=== PATIENT | male | born 1960 | race Caucasian/White ===

== ENCOUNTER 2022-11-06 11:00 | Emergency (ER) | payer OTHER, SELFPAY ==
--- NOTE | 2022-11-06 11:04 | ED.GENADULT ---
HPI - General Adult General Chief complaint: Dizziness Stated complaint: dizziness Time Seen by Provider: 11/06/22 11:25 Source: patient and RN notes reviewed Mode of arrival: ambulatory Limitations: no limitations History of Present Illness HPI narrative: 62-year-old male presents to the [facility] with increasing dizziness over the last 2 weeks. Had a dizzy episode yesterday where he states that he ?passed out for several minutes. Did not fall, did not hit head. On arrival heart rate 150. EKG done. Reports a history of hypertension. States that he called his doctor with HS was told to go an urgent care. MD complaint: dizzy Treatments prior to arrival: none Related Data Home Medications Medication Instructions Recorded Confirmed amlodipine 10 mg tablet 10 mg PO DAILY 11/06/22 11/06/22 hydrochlorothiazide 25 mg tablet 25 mg PO DAILY 11/06/22 11/06/22 olmesartan 40 mg tablet 40 mg PO DAILY 11/06/22 11/06/22 Allergies Allergy/AdvReac Type Severity Reaction Status Date / Time No Known Allergies Allergy Verified 11/06/22 11:46 Review of Systems Review of Systems: All systems reviewed & are unremarkable except as noted in HPI and below Constitutional: Constitutional: Reports no additional constitutional complaints Eyes: Eyes: Reports no additional eye complaints ENT: Reports system reviewed and no additional complaints, except as documented Cardiovascular: Cardiovascular: Reports no additional cardiovascular complaints, Denies chest pain and Denies dyspnea Respiratory: Respiratory: Reports no additional respiratory complaints, Denies chest congestion, Denies cough and Denies dyspnea Gastrointestinal: Gastrointestinal: Reports no additional gastrointestinal complaints, Denies abdominal pain, Denies nausea and Denies vomiting Musculoskeletal: Musculoskeletal: Reports no additional musculoskeletal complaints Integumentary/Breasts: Skin/Breast: Reports system reviewed and no additional complaints, except as docu Neurologic: Reports as per HPI, Reports dizziness and Reports syncope Psychiatric: Psychiatric: Reports no additional psychiatric complaints Allergic/Immunologic: Allergic/Immunologic: Reports no additional allergic/immunologic complaints PMFSH Past Medical History Medical History History of high blood pressure Surgical History Surgical History No history of previous surgery Social History Social History : Male Comments At the time of my signature, I reviewed and agree with the nursing past medical, surgical, social, and family history. There is no relevant family history pertinent to the patient complaint. Exam Const: General: cooperative, healthy appearing, comfortable, no acute distress, well developed, alert and well nourished Nutritional Appearance: well nourished and obese Orientation/consciousness: patient oriented x3 Limitations: no limitations HENMT: Head: normal to inspection Ears: hearing grossly normal bilaterally and external ears normal Face/Nose/Sinus: Normal external nose present, Normal nares present, Normal nasal mucous membranes and turbinates present, normal facial exam and face symmetric Face and sinus: normal facial exam and face symmetric Eyes: General: appearance normal, both eyes and all related structures Alignment and Position: alignment normal Periorbital: periorbital findings normal Pupils: Equal, round and reactive pupils present EOM: EOMs intact bilaterally Neck: Neck: normal visual inspection, full ROM, no lymphadenopathy and no meningeal signs Chest: Chest palpation & inspection: normal inspection of the chest Resp: Effort & Inspection: normal respiratory effort and able to speak in complete sentences Auscultation: clear to auscultation bilat
[2022-11-06 11:29] VITALS: BP 155/91; PULSE 155; RESP 18; TEMP 36.3; O2SAT 100
--- NOTE | 2022-11-06 14:13 | ECG_ITS ---
Measurements Intervals [place] Rate: 116 P: 27 [place]: 170 QRS: 8 QRSD: 99 T: 23 QT: 343 QTc: 477 Interpretive Statements SINUS TACHYCARDIA ATRIAL AND VENTRICULAR PREMATURE COMPLEXES INCOMPLETE RIGHT BUNDLE BRANCH BLOCK BORDERLINE T WAVE ABNORMALITY- INFERIOR LEADS ABNORMAL ECG NO PREVIOUS ECG AVAILABLE FOR COMPARISON Electronically Signed On 11-06-2022 14:24:15 CDT by Zach Ayala D.O.
== END 2022-11-06 11:35 | disposition short-term general hospital (02) ==
LOC: EXPTROY 11:09
PROVIDERS: Emergency Provider Nurse Practitioner
DX: R42 Dizziness and giddiness (principal); R94.31 Abnormal electrocardiogram [ECG] [EKG]; I10 Essential (primary) hypertension
CPT/HCPCS: 93005; 99203; G0463

== ENCOUNTER 2022-11-06 11:56 | Emergency (ER) | payer OTHER, SELFPAY ==
--- NOTE | ~2022-11-06 | CT_ITS ---
EXAMINATION: CTA chest PE protocol DATE: 11/06/2022 17:52 INDICATION: elevated ddimer, tachycardia TECHNIQUE: Computed tomography angiography (CTA) of the chest was performed with 100 mL Omnipaque-350 intravenous contrast timed to evaluate the pulmonary arteries. Coronal maximum intensity projection 3D-reconstructions were created by the technologist. The dose-length product (DLP) was 1045.65 mGy-cm . Automated exposure control and iterative reconstruction technique were employed. COMPARISON: None. FINDINGS: Lung parenchyma and airways: Motion artifact. 5 mm right lower lobe pulmonary nodule. Pleura: Unremarkable. Thoracic inlet, axillae and chest wall: Unremarkable. Thoracic aorta: Mild arch ectasia. Mediastinum: Normal. Heart and pericardium: Cardiomegaly. Coronary artery calcifications: Mild. Upper abdomen: No significant finding. Bones: No acute osseous finding. Pulmonary arteries: Study quality: Exam limited by significant beam hardening artifact and mild motio n artifact. No pulmonary emboli detected. IMPRESSION: Exam limitations are present, particularly in the segmental branches of the lungs. No acute central o r occlusive segmental pulmonary embolus detected. Sub-6 mm right lower lobe pulmonary nodule, requiring no routine follow-up unless the patient is at h igh risk, in which case consider an optional CT at 12 months. Reviewed, dictated and finalized at location K. IMPRESSION: Exam limitations are present, particularly in the segmental branches of the magdaleno gs. No acute central or occlusive segmental pulmonary embolus detected. Sub-6 mm right lower lobe pulmonary nodule, requiring no routine follow-up unle ss the patient is at high risk, in which case consider an optional CT at 12 mon ths.
--- NOTE | 2022-11-06 12:00 | ECG_ITS ---
Measurements Intervals [place] Rate: 90 P: 12 [place]: 149 QRS: 11 QRSD: 102 T: 32 QT: 367 QTc: 451 Interpretive Statements SINUS RHYTHM BASELINE ARTIFACT- I, III, AVR, AVL NORMAL ECG NO PREVIOUS ECG AVAILABLE FOR COMPARISON Electronically Signed On 11-06-2022 13:20:30 CDT by Zach Ayala D.O.
[2022-11-06 12:51] VITALS: BP 175/95; PULSE 88; RESP 18; TEMP 36.6; O2SAT 99
[2022-11-06 15:18] VITALS: PULSE 90
--- NOTE | 2022-11-06 16:07 | ED.GENADULT ---
HPI - General Adult General Chief complaint: Dizziness Stated complaint: dizzziness Time Seen by Provider: 11/06/22 15:21 History of Present Illness HPI narrative: 62-year-old male presented emergency department for evaluation of multiple episodes of near syncope. Patient reports he does drink multiple beers a day and has a poor diet. Patient denies any prior cardiac history. Patient states yesterday he was ambulating and had onset of lightheaded dizziness and did make it back home and he felt improved after resting in his chair. Patient did present to the [facility] for evaluation and was sent to the emergency department. Upon arrival to the ED patient has a blood pressure of 175/95 and is not tachycardic and is saturating well on room air. Patient denies any current dizziness or lightheadedness. Patient denies any current chest pain or shortness of breath. Related Data Home Medications Medication Instructions Recorded Confirmed amlodipine 10 mg tablet mg 11/06/22 hydrochlorothiazide 25 mg tablet mg 11/06/22 meloxicam 15 mg tablet mg 11/06/22 olmesartan 40 mg tablet mg 11/06/22 olmesartan 40 mg tablet mg 11/06/22 Allergies Allergy/AdvReac Type Severity Reaction Status Date / Time No Known Allergies Allergy Verified 11/06/22 15:21 Review of Systems Review of Systems: All systems reviewed & are unremarkable except as noted in HPI and below Exam Narrative: APPEARANCE: Well appearing, no pain, no distress, well-nourished. HEAD: normocephalic, atraumatic. EYES: PERRLA/EOMI, conjunctivae clear. NOSE: Normal no drainage NECK: Supple. No adenopathy, no masses. RESPIRATORY: Airway patent, respirations nonlabored. Clear to auscultation bilaterally, no rales, rhonchi, wheezing. CARDIOVASCULAR: Regular rate and rhythm without murmurs rubs or gallops. ABDOMINAL: Soft, nontender, nondistended, normal bowel sounds MUSCULOSKELETAL: Moves all extremities. Strength/ROM intact, No edema, No calf tenderness. NEURO: Alert. Cranial nerves II through XII intact. SKIN: Warm, dry. Normal Color Course Course Emergency Course: 62-year-old male presented the ED for evaluation of near syncope and hypertension. Patient declined an IV and labs. Ultimately patient did agree to have IV and labs. Patient was treated with a liter of IV fluids and hydralazine. Patient was afebrile with no leukocytosis and a stable hemoglobin. Patient's CMP was within normal limits. Patient's blood alcohol was negative. Patient did have an elevated D-dimer. CTA showed no evidence of pulmonary embolism. Patient was updated the results of the work-up. Patient was encouraged of close follow-up with his primary care physician. All questions concerns were addressed and patient was well-appearing at time of discharge. Patient states he does have follow-up with his primary care physician on Sunday. Patient was advised to follow a low-sodium diet, avoid alcohol and take his blood pressure medications as directed. Vital Signs Vital signs: Vital Signs Temperature 98 F 11/06/22 12:51 Pulse Rate 88 11/06/22 12:51 Respiratory Rate 18 11/06/22 12:51 Blood Pressure 175/95 H 11/06/22 12:51 Pulse Oximetry 99 11/06/22 12:51 Oxygen Delivery Room Air 11/06/22 12:51 Temperature 98 F 11/06/22 12:51 Pulse Rate 109 H 11/06/22 18:41 Respiratory Rate 18 11/06/22 18:41 Blood Pressure 147/88 H 11/06/22 18:41 Pulse Oximetry 99 11/06/22 18:41 Oxygen Delivery Room Air 11/06/22 12:51 Medical Decision Making Vital Signs Vital Signs: Vital Signs Temperature 98 F 11/06/22 12:51 Pulse Rate 88 11/06/22 12:51 Respiratory Rate 18 11/06/22 12:51 Blood Pressure 175/95 H 11/06/22 12:51 Pulse Oximetry 99 11/06/22 12:51 Oxygen Delivery Room Air 11/06/22 12:51 Temperature 98 F 11/06/22 12:51 Pulse Rate 109 H 11/06/22 18:41 Respiratory Rate 18 11/06/22 18:41 Blood Pressure 147/88 H 11/06/22
[2022-11-06 16:12] LABS: Basophils Absolute Auto 0.1 K/mm3 (0.0-0.1); Basophils Percent Auto 0.8 % (0.2-1.2); Eosinophils Percent Auto 0.5 % (0-4.4); Hematocrit 47.4 % (42.0-52.0); Hemoglobin 16.3 g/dL (14.0-18.0); Immature Granulocyte Absolute 0.04 K/mm3 (0.00-0.031); Immature Granulocyte Percent A 0.5 % (0-0.5); Lymphocytes Absolute Auto 1.26 K/mm3 (0.9-3.2); Lymphocytes Percent Auto 17.2 % (18.3-44.2); Mean Corpuscular HGB Conc 34.4 g/dl (32-36); Mean Corpuscular Hemoglobin 29.5 pg (26-34); Mean Corpuscular Volume 85.9 fl (80-100); Monocytes Absolute Auto 0.6 K/mm3 (0.1-0.6); Monocytes Percent Auto 8.2 % (2.6-8.5); Neutrophils Absolute Auto 5.3 K/mm3 (1.3-6.7); Neutrophils Percent Auto 72.8 % (45.5-73.1); Platelet Count Result 295 k/mm3 (150-375); Red Blood Count 5.52 M/mm3 (4.6-6.20); Red Cell Distribution Width 12.9 % (11.5-14.5); White Blood Count 7.3 K/mm3 (4.5-10.0)
[2022-11-06 16:22] LABS: Alanine Aminotransferase 26 U/L (6-50); Albumin Level 4.9 g/dL (3.5-5.1); Alkaline Phosphatase 77 U/L (38-126); Anion Gap 9 mmol/L (8-16); Aspartate Amino Transferase 27 U/L (17-59); Bilirubin,Total 1.3 mg/dL (0.2-1.3); Blood Urea Nitrogen 11 mg/dL (9-20); Calcium 9.3 mg/dL (8.4-10.2); Carbon Dioxide 26 mmol/L (22-30); Chloride 98 mmol/L (98-107); Estimated CRCL calculation 121 ml/min; Estimated Glomerular Filt Rate > 60; Glucose 115 mg/dL (65-110); Potassium 3.4 mmol/L (3.4-5.0); Sodium 133 mmol/L (137-145)
[2022-11-06 16:50] VITALS: BP 170/105; PULSE 112; RESP 20; O2SAT 100
[2022-11-06] MEDS: THIAMINE HCL 200 MG/2 ML VIAL 100 MG IV PUSH (16:51)
[2022-11-06] MEDS: SODIUM CHLORIDE 0.9% IV 1,000 ML 999 ML IV CONT (16:51)
[2022-11-06] MEDS: hydrALAZINE HCL 20 MG/ML VIAL 10 MG IV PUSH (16:51)
[2022-11-06 16:55] LABS: D Dimer 0.87 ug/mL (<0.48)
[2022-11-06 17:27] LABS: Ethanol < 10 mg/dL (<10)
[2022-11-06 17:35] LABS: Magnesium 2.3 mg/dL (1.6-2.3)
[2022-11-06 18:31] VITALS: PULSE 122
[2022-11-06] MEDS: METOPROLOL TARTRATE INJ 5 MG/5 ML VIAL IV PUSH (18:31)
[2022-11-06 18:41] VITALS: BP 147/88; PULSE 109; RESP 18; O2SAT 99
[2022-11-06 19:15] VITALS: BP 152/94; PULSE 100; RESP 19; O2SAT 100
== END 2022-11-06 19:15 | disposition home or self-care (01) ==
PROVIDERS: Emergency Provider Emergency Medicine; PCP Nurse Practitioner Family
DX: I10 Essential (primary) hypertension (principal)
CPT/HCPCS: 36415; 71275; 80053; 80307; 83735; 85025; 85380; 93005; 96361; 96374; 96375; 99284; J0360; J3411; J7030; Q9967

== ENCOUNTER 2023-07-13 08:21 | Outpatient (CLI) | payer OTHER, SELFPAY ==
--- NOTE | ~2023-07-13 | US_ITS ---
EXAMINATION: US carotid duplex BI DATE: 07/13/2023 08:54 INDICATION: Dizziness and giddiness TECHNIQUE: Grayscale, color Doppler, and pulsed Doppler images of the cervical carotid arteries were obtained. The degree of vessel stenosis is placed in one of the following categories: normal, <50%, 5 0-69%, >=70% but less than near-occlusion, near-occlusion, or total occlusion. Note that percent sten osis relative to normal distal artery lumen diameter is indirectly measured from velocity measurement s as described by Siddhartha, et al. Radiology 2003; 229:340-346. COMPARISON: None. FINDINGS: RIGHT: The right common carotid artery (CCA) peak systolic velocity (PSV) is 61 cm/s. The right internal car otid artery (ICA) PSV is 69 cm/s. The right ICA end-diastolic velocity (EDV) is 18 cm/s. The right IC A/CCA PSV ratio is 1.1. Grayscale and color Doppler images demonstrate no evident stenosis or plaque in the ICA. The external carotid artery (ECA) PSV is 103 cm/s. There is antegrade flow in the right v ertebral artery. LEFT: The left CCA PSV is 87 cm/s. The left ICA PSV is 69 cm/s. The left ICA EDV is 33 cm/s. The left ICA/C CA PSV ratio is 0.8. Grayscale and color Doppler images demonstrate no evident stenosis or plaque in the ICA. The ECA PSV is 120 cm/s. There is antegrade flow in the left vertebral artery. IMPRESSION: 1. No evident atherosclerotic plaque or stenosis stenosis in the either the right or left internal ca rotid arteries. Reviewed, dictated and finalized at location A. IMPRESSION: 1. No evident atherosclerotic plaque or stenosis stenosis in the either the rig ht or left internal carotid arteries.
== END 2023-07-13 08:22 | disposition home or self-care (01) ==
PROVIDERS: PCP Nurse Practitioner Family; Visit Provider Nurse Practitioner Family
DX: R42 Dizziness and giddiness (principal)
CPT/HCPCS: 93880

== ENCOUNTER 2023-07-30 09:37 | Outpatient (CLI) | payer OTHER, SELFPAY ==
[2023-07-30 10:30] LABS: Anion Gap 4 mmol/L (4-12); Blood Urea Nitrogen 16 mg/dL (9-20); Carbon Dioxide 32 mmol/L (22-30); Chloride 98 mmol/L (98-107); Estimated Glomerular Filt Rate > 60; Glucose 102 mg/dL (65-110); Potassium 3.8 mmol/L (3.4-5.0); Sodium 134 mmol/L (137-145)
== END 2023-07-30 09:38 | disposition home or self-care (01) ==
LOC: ANHSURGERY 09:44
PROVIDERS: Anesthesiology; PCP Nurse Practitioner Family; Visit Provider Plastic Surgery
DX: Z01.818 Encounter for other preprocedural examination (principal); Z79.899 Other long term (current) drug therapy
CPT/HCPCS: 36415; 80048

== ENCOUNTER 2023-08-01 01:03 | Day surgery (SDC) | payer OTHER, SELFPAY ==
[2023-07-24 09:49] VITALS: BMI 43.4
--- NOTE | 2023-07-24 09:50 | PC.NURSE ---
Report to the Outpatient Waiting Room, entrance under the green pavilion located off [facility], at time _1130_ on date _[id number]_. Planned Procedure Time: _130pm_. Time changes happen often and if your time is changed the preop area will call you the afternoon before. - You and your visitor will be asked to self-screen and do not enter if you have any COVID symptoms. - A mask is optional within the hospital at this time. May have clear liquids (water, carbonated beverages, clear teas, apple juice) until 530am with a maximum of 20 ounces. Nothing to drink after 530am. - No food from midnight until time of surgery Take the following medications with a SIP of water the morning of surgery: _Amlodipine and Metoprolol DO NOT STOP ANY OF YOUR OTHER PRESCRIPTION MEDICATIONS PRIOR TO SURGERY ?EXCEPT THE FOLLOWING Medications to discontinue per physician ____Please inquire of Dr August's office if need to hold Aspirin and Meloxicam.___ Date to take last dose Please no make-up, nail portuguese, hairspray, perfume, deodorant, or body powder the day of surgery. No jewelry (including any body piercings) or valuables the day of surgery, leave them at home. Please take a shower or bath the night before, or the morning of, surgery with an antibacterial soap. Wear comfortable, loose fitting clothing. - Jewelry must be removed prior to entering the operating room. Rings and piercings that are not removed may be cut off. - The hospital will not accept responsibility for valuables. - Please leave all valuables, including medications, at home the day of surgery. If you are going home after surgery, a licensed team otr truck driver must drive you home. - NO public transportation without another adult if you receive anesthesia. - We recommend that an adult stay with you for 24 hours following discharge. - We also recommend that you do not drive, make important decision, drink alcoholic beverages, or take any drugs that were not prescribed by your health care provider for at least 24 hours after your discharge time. Follow any additional instructions given to you from your surgeon. If you or anyone in your household have experienced Covid symptoms in the past week, please notify your surgeon or the nurse liaison at the phone number below for possible testing. Telephone instructions given to _Jose__and asked if any additional questions and then verbalized understanding. Patient advised to call surgeon office or pre surgery nurse liaison [phone] if any additional questions.
[2023-08-01 06:55] VITALS: BP 159/104; PULSE 95; RESP 16; TEMP 36.5; O2SAT 98; BMI 45.2
--- NOTE | 2023-08-01 07:06 | PM.HPGS ---
History of Present Illness History of Present Illness Chief complaint: trigger finger left ring finger Narrative: Patient seen and examined in pre-operative holding area. No interval change in medical history or symptoms. Patient recalls previous discussion of benefits and alternatives to procedure. Continues to desire to proceed with left ring finger a1 sabine release . Reviewed procedure, post-op expectations and risks including but not limited to bleeding, infection, injury to tendon/nerve/vessel, decreased hand function, stiffness, RSD, no change or worsening of symptoms. I discussed the possible use of assistants and their participation in the case. Patient stated understanding and signed the consent form wishing to proceed. Review of Systems Review of Systems: All systems reviewed & are unremarkable except as noted in HPI and below PMFSH Past Medical History Medical History (Updated 08/01/23 @ 07:41 by Chay Tyson MD) ETOH abuse History of high blood pressure Morbid obesity Surgical History Surgical History No history of previous surgery Family History Family History Father Alcoholism Diabetes mellitus Hypertension Sibling Diabetes mellitus Hypertension Grandparent Diabetes mellitus Social History Social History Smoking status: Never smoker Alcohol intake: current Drinks per week: 35 Substance use: never Substance use type: does not use Lack of Transportation: No Lack of Food: Never True Current Housing: I Have Housing Concerned About Future Housing: No Difficulty Paying Gas/Electric Bills: No Difficulty Paying for Meds: No Currently Unemployed: No Education: Bachelor's Degree Difficulty w/ Childcare or Family Care: No Living arrangements: with family Occupation/Education: occupation 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 Gender identity (if verbalized by the patient): Male Spiritual care concerns: No Agree to blood products: Yes Meds Home Medications and Allergies Home Medications Medication Instructions Recorded Confirmed Type amlodipine 10 mg tablet See Rx Instructions .Route 04/09/23 07/24/23 Rx .COMPLEX #90 tabs hydrochlorothiazide 25 mg tablet 25 mg PO DAILY #90 tabs 04/09/23 07/24/23 Rx olmesartan 40 mg tablet See Rx Instructions .Route 05/28/23 07/24/23 Rx .COMPLEX #90 tabs meloxicam 15 mg tablet 15 mg PO DAILY PRN joint pain #90 06/12/23 07/24/23 Rx tabs metoprolol succinate 25 mg 25 mg PO DAILY #90 tabs 06/12/23 07/24/23 Rx tablet,extended release 24 hr aspirin 325 mg tablet 650 mg PO QPM 07/24/23 07/24/23 History tramadol 50 mg tablet 50 mg PO Q6H PRN pain #12 tabs 08/01/23 Rx Allergies Allergy/AdvReac Type Severity Reaction Status Date / Time No Known Allergies Allergy Verified 07/24/23 09:39 Vital Signs Vital Signs - 24 hr 08/01/23 06:55 Temperature 36.5 C Pulse Rate 95 Respiratory Rate 16 Blood Pressure 159/104 H Pulse Oximetry 98 Oxygen Delivery Room Air Exam Narrative: unchanged Assessment and Plan Assessment and plan (1) Trigger finger, left ring finger: Code(s): M65.342 - Trigger finger, left ring finger Status: Acute Assessment and Plan: cont as above
--- NOTE | 2023-08-01 07:06 | W.PM.PROC2 ---
Procedure Note - Detailed Date of Procedure 08/01/23 Pre-op Diagnosis trigger finger left ring finger Post-op Diagnosis Same Procedure Performed left ring finger a1 sabine release Surgeon Heydi August MD Medical Claims Representative mercedes armenta pa-c Anesthesia MAC Description of Procedure INFORMED CONSENT: The patient was seen and examined and marked in the pre-op area.? The patient signed the consent form. PROCEDURE IN DETAIL:The patient taken back to OR on the stretcher in supine position. Time out performed with anesthesia, surgeon and staff agreeing on patient's name site and surgery to be performed SCDs were placed on the lower extremities and inflated. A tourniquet was placed on {left} upper extremity and antibiotics given IV After anesthesia administered sedation I injected {3}cc 1%lido and 0.5% marcaine plain at the operative site The?{left upper extremity}?was prepped and draped in sterile fashion the??{left upper extremity} was? exsanguinated with Esmarch bandage and tourniquet inflated to 250mmHg I made a longitudinal incision over the left ring finger A1 sabine through skin and dermis with a 15 blade scalpel. Littler scissors were used to spread down to the a1 sabine. I initially incisied pulled with 15 blade then used littler scissors to spread above and below it proximally and distally and completed the transection entirely. I withdrew fds and fdp tendons for inspection with ragnell retractors. They were free of masses and synovitis and gliding smoothly in the sheath without triggering or crepitus though a small amount of fraying was noted on the tendons. I irrigated with normal saline and closed with 4-0 chromic. A dressing of xeroform, 4x4, aylin, and an jamee bandage was applied after the tourniquet was let down noting the hand was warm and well perfused. The patient was then awaken from anesthesia and transferred to the recovery room in stable condition.? Complications - none EBL- 0cc Disposition - home in stable conditions mercedes armenta pa-c was essential for positioning, retraction, closure and dressing placement [facility] Billing Surgery - Charge Forward: Surgery Billing ([id number] for mercedes)
[2023-08-01 07:34] VITALS: BP 147/94
[2023-08-01] MEDS: LACTATED RINGERS 1,000 ML 30 ML IV CONT (07:36)
--- NOTE | 2023-08-01 07:40 | WPDANESEPPF ---
Anes - Initial Pre Proc Eval Procedure: Operation Date: 08/01/23 08:15 Proposed Procedures p Left Ring Trigger Finger Release - Heydi August MD Date/Time: 08/01/23 07:40 Surgeon: Heydi August MD Pre Op Diagnosis: trigger finger left ring finger Patient Data Age: 62 Gender: M Height: 1.83 m Weight: 151.4 kg Last Vital Signs Temp 36.5 C 08/01/23 06:55 Pulse 95 08/01/23 06:55 Resp 16 08/01/23 06:55 BP 147/94 H 08/01/23 07:34 Pulse Ox 98 08/01/23 06:55 O2 Del Method Room Air 08/01/23 06:55 Allergies Allergy/AdvReac Type Severity Reaction Status Date / Time No Known Allergies Allergy Verified 07/24/23 09:39 Home Medications Medication Instructions Recorded Confirmed Type amlodipine 10 mg tablet See Rx Instructions .Route 04/09/23 07/24/23 Rx .COMPLEX #90 tabs hydrochlorothiazide 25 mg tablet 25 mg PO DAILY #90 tabs 04/09/23 07/24/23 Rx olmesartan 40 mg tablet See Rx Instructions .Route 05/28/23 07/24/23 Rx .COMPLEX #90 tabs meloxicam 15 mg tablet 15 mg PO DAILY PRN joint pain #90 06/12/23 07/24/23 Rx tabs metoprolol succinate 25 mg 25 mg PO DAILY #90 tabs 06/12/23 07/24/23 Rx tablet,extended release 24 hr aspirin 325 mg tablet 650 mg PO QPM 07/24/23 07/24/23 History tramadol 50 mg tablet 50 mg PO Q6H PRN pain #12 tabs 08/01/23 Rx Patient hx anesthesia problems: none Family hx anesthesia problems: none Results Review: All pre-operative results and documents have been reviewed as part of the pre-operative evaluation. [facility] Past Medical History Medical History (Updated 08/01/23 @ 07:41 by Chay Tyson MD) ETOH abuse History of high blood pressure Morbid obesity Surgical History Surgical History No history of previous surgery Family History Family History Father Alcoholism Diabetes mellitus Hypertension Sibling Diabetes mellitus Hypertension Grandparent Diabetes mellitus Social History Social History Smoking status: Never smoker Alcohol intake: current Drinks per week: 35 Substance use: never Substance use type: does not use Lack of Transportation: No Lack of Food: Never True Current Housing: I Have Housing Concerned About Future Housing: No Difficulty Paying Gas/Electric Bills: No Difficulty Paying for Meds: No Currently Unemployed: No Education: Bachelor's Degree Difficulty w/ Childcare or Family Care: No Living arrangements: with family Occupation/Education: occupation 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 Informed Consent: The patient's anesthetic plan and its attendant risks and benefits were discussed with the patient/family/POA. Questions were solicited and answers provided to the satisfaction of the patient/family/POA.
[2023-08-01] MEDS: ceFAZolin 3 GM/D5W 100 ML 100 ML IVPB (08:20)
[2023-08-01] MEDS: LIDOCAINE HCL 1% LOCAL INJ 10 ML VIAL INFILTRATE (08:34)
[2023-08-01 08:48] VITALS: BP 125/76; PULSE 95; RESP 12; O2SAT 98
[2023-08-01 09:10] VITALS: BP 144/89; PULSE 80; RESP 17; O2SAT 100
[2023-08-01] MEDS: oxyCODONE HCL (*CRX) 5 MG TAB IR PO (09:20)
[2023-08-01 09:40] VITALS: BP 159/104; PULSE 83; RESP 17
== END 2023-08-01 10:07 | disposition home or self-care (01) ==
PROVIDERS: PCP Nurse Practitioner Family; Visit Provider Plastic Surgery
PROC: (CPT 26055; principal; 2023-08-01 08:15)
DX: M65.342 Trigger finger, left ring finger (principal); I10 Essential (primary) hypertension; E66.01 Morbid (severe) obesity due to excess calories; Z68.42 Body mass index [BMI] 45.0-49.9, adult
CPT/HCPCS: 26055; A9270; J0690; J2405; J2704; J3010; J7120

== ENCOUNTER 2023-11-26 09:30 | Outpatient (CLI) | payer OTHER, SELFPAY ==
--- NOTE | 2023-11-26 09:42 | EST_ITS ---
Patient Info Name: Jose Monzon Age: 63 years : 1960 Gender: Male HR: 81 bpm BP: 150 / 96 mmHg Heart Rhythm: Sinus Rhythm Technical Quality: Good Exam Date: 11/26/2023 10:12 AM Exam Location: Echo Lab Patient Status: Outpatient Admit Date: 11/26/2023 Staff Ordering Physician: Felton Ross MD Attending Provider: Felton Ross MD Exam Type: CA stress test treadmill Study Info A treadmill exercise stress test was performed. History/Risk Factors Hypertension: Yes Summary 1. 1. Negative Maurice exercise stress test for ischemic ST changes by ECG criteria. 2. 2. Poor functional capacity, achieving 4.6 METs of workload. 3. 3. Probably supraventricular tachycardia occurred with exercise at 200 bpm. 4. 4. Appropriate HR recovery at 1 minute post exercise. 5. 5. Baseline hypertension. 6. 6. No imaging with stress testing. Protocol: Maurice Stress ECG Details Stage: REST Duration (min): 2 min : 15 sec Speed (mph): 0.0 Grade (%): 0 HR (bpm): 80 SBP (mmHg): 150 DBP (mmHg): 96 METS: --- Stage: REST Duration (min): 9 min : 41 sec Speed (mph): 0.0 Grade (%): 0 HR (bpm): 107 SBP (mmHg): 150 DBP (mmHg): 96 METS: --- Stage: STAGE 1 Duration (min): 1 min : 0 sec Speed (mph): 1.7 Grade (%): 10 HR (bpm): 185 SBP (mmHg): 150 DBP (mmHg): 96 METS: --- Stage: STAGE 1 Duration (min): 2 min : 0 sec Speed (mph): 1.7 Grade (%): 10 HR (bpm): 199 SBP (mmHg): 150 DBP (mmHg): 96 METS: --- Stage: STAGE 1 Duration (min): 2 min : 6 sec Speed (mph): 1.7 Grade (%): 10 HR (bpm): 201 SBP (mmHg): 150 DBP (mmHg): 96 METS: --- Stage: RECOVERY Duration (min): 0 min : 53 sec Speed (mph): 0.0 Grade (%): 0 HR (bpm): 193 SBP (mmHg): 191 DBP (mmHg): 67 METS: --- Stage: RECOVERY Duration (min): 1 min : 53 sec Speed (mph): 0.0 Grade (%): 0 HR (bpm): 167 SBP (mmHg): 179 DBP (mmHg): 80 METS: --- Stage: RECOVERY Duration (min): 2 min : 53 sec Speed (mph): 0.0 Grade (%): 0 HR (bpm): 113 SBP (mmHg): 179 DBP (mmHg): 80 METS: --- Stage: RECOVERY Duration (min): 3 min : 53 sec Speed (mph): 0.0 Grade (%): 0 HR (bpm): 121 SBP (mmHg): 179 DBP (mmHg): 80 METS: --- Stage: RECOVERY Duration (min): 4 min : 53 sec Speed (mph): 0.0 Grade (%): 0 HR (bpm): 98 SBP (mmHg): 196 DBP (mmHg): 113 METS: --- Stage: RECOVERY Duration (min): 5 min : 53 sec Speed (mph): 0.0 Grade (%): 0 HR (bpm): 101 SBP (mmHg): 196 DBP (mmHg): 113 METS: --- Stage: RECOVERY Duration (min): 6 min : 53 sec Speed (mph): 0.0 Grade (%): 0 HR (bpm): 76 SBP (mmHg): 140 DBP (mmHg): 91 METS: --- Stage: RECOVERY Duration (min): 7 min : 53 sec Speed (mph): 0.0 Grade (%): 0 HR (bpm): 123 SBP (mmHg): 159 DBP (mmHg): 70 METS: --- Stage: RECOVER
== END 2023-11-26 09:31 | disposition home or self-care (01) ==
LOC: CHSCARD 09:38
PROVIDERS: PCP Family Medicine; Visit Provider Family Medicine
DX: I10 Essential (primary) hypertension (principal)
CPT/HCPCS: 93017

== ENCOUNTER 2023-12-06 13:56 | Outpatient (CLI) | payer OTHER, SELFPAY ==
--- NOTE | 2023-12-06 14:04 | ECHO_ITS ---
Patient Info Name: Jose Monzon Age: 63 years : 1960 Gender: Male Ht: 72 in Wt: 325 lbs BSA: 2.81 m2 HR: 70 bpm BP: 175 / 92 mmHg Heart Rhythm: Sinus Rhythm Technical Quality: Good Exam Date: 12/06/2023 1:55 PM Exam Location: [facility], [place] Patient Status: Outpatient Admit Date: 12/06/2023 Staff Ordering Physician: Felton Ross MD Rag Inspector: Zi Hall RDCS Attending Provider: Felton Ross MD Referring Physician: Cody RASHID; Exam Type: CA echo doppler color flow Study Info Indications - HTN Complete two-dimensional, color flow and Doppler transthoracic echocardiogram is performed. History/Risk Factors Hypertension: Yes Summary 1. Complete two-dimensional, color flow and Doppler transthoracic echocardiogram is performed. 2. Left ventricular chamber dimension is normal. 3. Left ventricular systolic function is normal, estimated at 60-65%. 4. There is mild concentric increased left ventricular wall thickness. 5. The left ventricular diastolic function is grade I diastolic dysfunction. 6. E/e' 8 is minimally elevated. 7. There is mild aortic valve sclerosis. 8. The mitral valve has mildly calcified annulus. 9. No pulmonary hypertension, estimated pulmonary arterial systolic pressure is 10 mmHg. Left Ventricle E/e' 8 is minimally elevated. Left ventricular chamber dimension is normal. Left ventricular systolic function is normal, estimated at 60-65%. There is mild concentric increased left ventricular wall thickness. The left ventricular diastolic function is grade I diastolic dysfunction. Right Ventricle Right ventricular systolic function is normal and with normal TAPSE 2.8 cm. Right ventricular chamber dimension is normal. Left Atria Left atrial chamber dimension is normal. Right Atria Right atrial chamber dimension is normal. Aortic Valve The aortic valve is trileaflet. There is mild aortic valve sclerosis. There is no aortic valve stenosis. There is no aortic valve regurgitation. Pulmonic Valve There is no pulmonic regurgitation. Mitral Valve The mitral valve has mildly calcified annulus. There is no mitral valve stenosis. There is no mitral valve regurgitation. Tricuspid Valve There is no tricuspid valve regurgitation. No pulmonary hypertension, estimated pulmonary arterial systolic pressure is 10 mmHg. Pericardium/Pleural There is no pericardial effusion. Inferior Vena Cava Normal inferior vena cava with >50% collapse upon inspiration consistent with normal right atrial pressure, 5 mmHg. Aorta The aortic root size at the sinus of Valsalva is normal. Left Ventricular Outflow Tract Name Value Normal LVOT 2D LVOT Diameter 2.3 cm LVOT Doppler LVOT Peak Velocity 78 cm/s LVOT Peak Gradient 2 mmHg LVOT Mean Gradient 1 mmHg LVOT VTI 19 cm LVOT VTI/AV VTI Ratio 0.7 LVOT Stroke Volume 77 ml Pulmonic Valve Name Value Normal
== END 2023-12-06 13:57 | disposition home or self-care (01) ==
LOC: CHSIMG 13:57
PROVIDERS: PCP Family Medicine; Visit Provider Family Medicine
DX: I10 Essential (primary) hypertension (principal); I50.30 Unspecified diastolic (congestive) heart failure
CPT/HCPCS: 93306

== ENCOUNTER 2024-06-18 08:46 | Outpatient (CLI) | payer OTHER, SELFPAY ==
[2024-06-18 09:03] LABS: Add Urine Microscopic? NO; Appearance Urine Clear (Clear); Basophils Absolute Auto 0.09 K/mm3 (0.00-0.10); Basophils Percent Auto 1.2 % (0.0-1.0); Bilirubin Urine Negative (Negative); Blood Urine Negative (Negative); Color Urine Light Yellow (Yellow); Eosinophils Absolute Auto 0.43 K/mm3 (0.02-0.50); Eosinophils Percent Auto 5.9 % (1.0-6.0); Glucose Urine UA Negative (Negative); Hematocrit 47.1 % (40.0-54.0); Hemoglobin 15.9 g/dL (14.0-18.0); Immature Granulocyte Absolute 0.04 K/mm3 (0.00-0.00); Immature Granulocyte Percent A 0.5 % (0.0-0.0); Ketones Urine Negative (Negative); Leukocyte Esterase Ur Negative (Negative); Lymphocytes Absolute Auto 1.95 K/mm3 (1.10-4.50); Lymphocytes Percent Auto 26.7 % (18.0-42.0); Mean Corpuscular HGB Conc 33.8 g/dL (32-36); Mean Corpuscular Volume 85.8 fL (78.0-102.0); Mean Platelet Volume 9.4 fl (8.7-11.0); Monocytes Absolute Auto 0.74 K/mm3 (0.10-0.90); Monocytes Percent Auto 10.1 % (2.0-11.0); Neutrophils Absolute Auto 4.06 K/mm3 (1.70-7.20); Neutrophils Percent Auto 55.6 % (50.0-70.0); Nitrate Urine Negative (Negative); Platelet Count Result 298 K/mm3 (150-420); Protein Urine Negative (Negative); Red Blood Count 5.49 M/mm3 (4.70-6.10); Red Cell Distribution Width 12.8 % (11.6-14.4); Specific Grav Ur <= 1.005 (1.010-1.020); Urobilinogen Urine 0.2 mg/dL (0.2-1.0); White Blood Count 7.3 K/mm3 (4.8-10.8); pH Urine 7.5 (5.0-8.0)
[2024-06-18 09:12] LABS: Creatinine Urine 16.47 mg/dL (40-278); MALB Creatinine Ratio 78.9 mg/g (0-30); Microalbumin Urine Random < 13.0 mg/L
--- OUTSIDE RECORDS SUMMARY | 2024-06-18 09:21 | XMS_ITS | Clinical Summary ---
Author Organization [facility] Address [address] [place] [address] Care Team Providers Care Electric Motor Control Assembler Name Role Phone Zach Ayala Francisco Javier DO Unavailable Felton Ross MD Primary Care Provider Allergies No known active allergies Medications olmesartan (BENICAR) 40 MG tabletIndications :Essential hypertension Take 1 tablet (40 mg total) by mouth daily. 90 tablet 3 3 Active amLODIPine (NORVASC) 10 MG tabletIndications :Essential hypertension Take 1 tablet (10 mg total) by mouth daily. 90 tablet 3 3 Active hydroCHLOROthiazi de (HYDRODIURIL) 25 MG tabletIndications :Essential hypertension Take 1 tablet (25 mg total) by mouth daily. 90 tablet 3 3 Active meloxicam (MOBIC) 15 MG tabletIndications :Essential hypertension Take 1 tablet (15 mg total) by mouth daily as needed (for pain). 30 tablet 5 3 Active aspirin EC (ECOTRIN) 81 MG tablet Take 1 tablet (81 mg total) by mouth daily. Active metoprolol succinate ER (TOPROL-XL) 25 MG 24 hr tablet Take 0.5 tablets (12.5 mg total) by mouth daily. NEW DOSE 45 tablet 1 5 Active metoprolol succinate ER (TOPROL-XL) 25 MG 24 hr tablet Take 1 tablet (25 mg total) by mouth daily. 4 05/27/19 25 Discontinu ed(Reorder ) Active Problems Problem Noted Date Diagnosed Date Morbid obesity with BMI of 45.0-49.9, adult 10/2022 Arthritis 05/23/2016 Essential hypertension 05/23/2016 Resolved Problems Problem Noted Date Diagnosed Date Resolved Date Screening for prostate cancer 05/25/2016 05/08/2022 Encounters Date Type Department Care Team Description 05/26/2024 2:00 PM CDT Office Visit [facility], [address] [address] Brigid Hummel PA-C Follow Up 05/26/2024 Travel 05/04/2024 Telephone [facility], [address] [address] Sheila Page MD Follow Up Call 04/24/2024 11:22 AM POUCH MAKER Anesthesia Event [facility] [address] Kath Pablo MD 04/24/2024 9:53 AM POUCH MAKER - 04/24/2024 3:18 PM POUCH MAKER Hospital Encounter [facility] [place] [address] Nancy Howard MD Morcos, Ehab S, MD Discharge Disposition: Home or Self Care (Routine Discharge) 04/24/2024 9:52 AM POUCH MAKER Hospital Encounter [facility] [place] [address] Nancy Howard MD Discharge Disposition: Home or Self Care (Routine Discharge) 04/24/2024 Travel from Last 3 Months Family History Medical History Relation Comments Diabetes Brother 1 Hypertension Brother 1 Hypertension Brother 2 Hypertension Brother 3 Cancer Father Hypertension Father Diabetes Maternal Grandfather Diabetes Maternal Grandmother childbirth Mother Diabetes Paternal Grandfather Diabetes Paternal Grandmother Diabetes Sister Relation Status Comments Brother 1 Alive Brother 2 Alive Brother 3 Alive Father Maternal Grandfather Maternal Grandmother Mother Paternal Grandfather Paternal Grandmother Sister Social History Tobacco Use Types Packs/Day Years Used Date Smoking Tobacco: Never Smokeless Tobacco: Never Tobacco Cessation:Counseling Given: Not Answered Alcohol Use Standard Drinks/Week Comments Yes 66.7 (1 standard drink = 0.6 oz pure alcohol) 4-5 beers nightly PHQ-2 Answer Date Recorded Patient Health Questionnaire-2 Score 0 05/01/2022 Sex and Gender Information Value Date Recorded Sex Assigned at Male 05/17/2022 4:14 PM CDT Legal Sex Male 7:29 PM CDT Gender Identity Male 05/17/2022 4:14 PM CDT Sexual Orientation Not on file Last Filed Vital Signs Vital Sign Reading Time Taken Comments Blood Pressure 134/88 05/26/2024 2:15 PM CDT Pulse 96 05/26/2024 2:15 PM CDT Temperature 36.4 C (97.6 F) 04/24/2024 12:45 PM POUCH MAKER Respiratory Rate 17 04/24/2024 2:45 PM POUCH MAKER Oxygen Saturation 95% 05/26/2024 2:15 PM CDT Inhaled Oxygen Concentration - - Weight 150.6 kg (332 lb) 05/26/2024 2:15 PM CDT Height 182.9 cm (6') 05/26/2024 2:15 PM CDT Body Mass Index 45.03 05/26/2024 2:15 PM CDT Plan of Treatment Upcoming Encounters Date Type Department Care Team (Late st Contact Info) Description 07/01/2024 3:40 PM CDT Office Visit [facility] - [address] [address] [address] [place] [address] Lou Etienne MD [address] [place] [address] 12/01/2024 2:00 PM CDT Office Visit [facility], [facility] [address] [place], [place] [id number] Nancy Howard MD [facility]. [facility] [address] [place] [address] Health Maintenance Due Date Last Done Comments Colorectal Cancer Screening Colonoscopy (10 Years) 1960 Annual Physical 1964 Hepatitis C 09/23/1979 DTaP, Tdap and Td Vaccines ( 1 - Tdap) 1980 Pneumococcal Vaccine: 50+ Ye ars (1 of 1 - PCV) 09/23/2011 Zoster Vaccines (1 of 2) 09/23/2011 RSV Immunization or 60+ Years (1 - Risk 60-74 years 1-dose series) 2021 COVID-19 Vaccine (2 - 2023-2 5 season) 2023 07/03/2020 PHQ-2 (Physician [place]) 02/27/2024 Meningococcal B Vaccine Aged Out No l onger eligible based on patient's age to complete this topic Meningococcal Vaccine Aged Out No quentin sylvia eligible based on patient's age to complete this topic RSV Immunizations Under 20 Months Aged Out No longer eligible based on patient's age to complete this topic Procedures Procedure Name Priority Date/Time Associated Diagnosis Comments ELECTROCARDIOGRAM (NON MIDMARK ACQUIRED) Routine 05/26/2024 2:20 PM CDT SVT (supraventricular tachycardia) (HHS/HCC) ECG 12-LEAD Routine 04/24/2024 12:21 PM POUCH MAKER SVT (supraventricular tachycardia) (HHS/HCC) XA SVT WPW ABLATION Routine 04/24/2024 1 2:12 PM POUCH MAKER SVT (supraventricular tachycardia) (HHS/HCC) TYPE & SCREEN STAT 04/24/2024 9:59 AM POUCH MAKER SVT (supraventricular tachycardia) (HHS/HCC) PROTHROMBIN TIME, VENOUS STAT 025 9:59 AM POUCH MAKER SVT (supraventricular tachycardia) (HHS/HCC) CBC W/DIFF AUTOMATED STAT 04/24/2024 9:59 AM POUCH MAKER SVT (supraventricular tachycardia) (HHS/HCC) BASIC METABOLIC PANEL STAT 04/24/2024 9:59 AM POUCH MAKER SVT (supraventricular tachycardia) (HHS/HCC) from Last 3 Months Results * ELECTROCARDIOGRAM (05/26/2024 2:20 PM CDT) 05/26/2024 2:20 PM CDT Narrative [facility] - 06/02/2024 8:58 PM CDT [facility], [facility] Test Date: 2024-05-26 Pat Name: JOSE MONZON Department: 112 Room: Gender: Male Boiling Off Winder: : 1960 Requested By: NANCY HOWARD Order Number: [id number] Reading MD: Sal Flores Measurements Intervals [place] Rate: 92 P: 30 NC: 187 QRS: -5 QRSD: 108 T: 29 QT: 365 QTc: 453 Interpretive Statements SINUS RHYTHM Procedure Note Sal Flores MD - 06/02/2024 Cher[facility] Garcia, [facility] Test Date: 2024-05-26 Pat Name: JOSE MONZON Department: 112 Room: Gender: Male Boiling Off Winder: : 1960 Requested By: NANCY HOWARD Order Number: [id number] Reading : Sal Flores Measurements Intervals [place] Rate: 92 P: 30 NC: 187 QRS: -5 QRSD: 108 T: 29 QT: 365 QTc: 453 Interpretive Statements SINUS RHYTHM us Nancy Howard MD PROCEDURES-ORDERABLE NO CHARGE F inal Result [facility] * ECG 12 lead (04/24/2024 12:21 PM POUCH MAKER) 04/24/2024 12:2 1 PM POUCH MAKER Narrative [facility] - 04/24/2024 8:16 PM POUCH MAKER [facility] [address] Test Date: 2024-04-24 Pat Name: JOSE MONZON Department: 40 [facility] [place] Gender: Male Boiling Off Winder: : 1960 Requested By: NANCY HOWARD Order Number: [id number] Reading JANY Christian Measurements Intervals [place] Rate: 101 P: 41 NC: 223 QRS: 13 QRSD: 105 T: 44 QT: 431 QTc: 560 Interpretive Statements SINUS TACHYCARDIA WITH FIRST DEGREE AV BLOCK NONSPECIFIC T-WAVE ABNORMALITY No previous ECG available for comparison H MAKER Procedure Note Sebastián Christian MD - 04/24/[address] Test Date: 2024-04-24 Pat Name: JOSE MONZON Department: 40 Room: [facility] Gender: Male Boiling Off Winder: : 1960 Requested By: NANCY HOWARD Order Number: [id number] Reading JANY Christian Measurements Intervals [place] Rate: 101 P: 41 NC: 223 QRS: 13 QRSD: 105 T: 44 QT: 431 QTc: 560 Interpretive Statements SINUS TACHYCARDIA WITH FIRST DEGREE AV BLOCK NONSPECIFIC T-WAVE ABNORMALITY No previous ECG available for comparison H MAKER us Nancy Howard MD ECG ORDERABLES Final Result [facility] RAD * XA SVT WPW ABLATION (04/24/2024 12:12 PM POUCH MAKER) Anatomical Region Laterality Modality Cardiac Airplane Tester Narrative 04/28/2024 8:51 AM POUCH MAKER [facility] CARDIAC CATHETERIZATION/EP LAB [phone] x [id number] SVT Ablation Patient's Name: Jose Monzon Date of : 1960 Medical Record: #[id number] Account: #[id number] Physician: Nancy Howard MD Date: 04/24/2024 Procedure: #[id number] History: 63-year-old male with history of supraventricular tachycardia. Here for EPS and/or ablation. Procedure: The patient was brought to the EP lab after consent obtained for EPS +/- ablation. Sedation services provided by Anesthesia services. Presenting Rhythm: Normal sinus rhythm Access: Ultrasound guidance was used for venous access. RFV were obtained. 2 Quadripolar catheters were advanced to the HIS position and RV apical septal position. A deflectable decapolar catheter was advanced out the coronary sinus. Catheters were placed under 3D mapping guidance. Vein was accessed with ultrasound and noted to be patent. Images was saved and archived. Baseline Measurements: RR 924 ms PP 924 ms QRS 78 ms QT 359 ms NC 180 ms AH 159 ms HV 48 ms VA conduction - is midline and decremental. VAWCL 400 ms AVWCL < 400 ms Atrial extrastimuli showed the presence of dual AV sylvia physiology. 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 This was correlated with the patient as clinical tachycardia symptoms. VA time <70ms. Due to non-sustained nature, empiric slow pathway ablation for dual AVN echoes performed. Ablation: A Lamp 90 sheath was advanced over a wire from the 8F RFV access, through which a 4mm Navistar catheter was advanced to the area of the triangle of Angel. Using Carto 3D mapping, a His cloud was tagged using the mapping catheter. The coronary sinus ostium was tagged. Then the area of the slow pathway was carefully mapped to find a ratio of atrial:ventricular electrograms 1:5. Ablation here at 50W/50 deg C limit/30 seconds was performed with slow junctional ectopy. Multiple lesions were given. No loss of retrograde atrial activation noted as well as no AV block noted. 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 Successful slow pathway modification performed. Recommendations: 2 hours of bedrest, continue home medications. Resume anticoagulation 4 hours after hemostasis if no groin complications. Discharge to home if groin stable. Follow-up in 6 [place] pacing [address] Drug infusion 99929 comp EPS + atrial ablation 95101 3d mapping ICD 10 [id number] Measurement and monitoring, cardiac, percutaneous, electrical activity 24115RQ Destruction, percutaneous, right atrium [id number] Destruction, percutaneous, conduction mechanism (slow pathway) 147.1 Supraventricular tachycardia [paroxysmal] Nancy Howard MD PS/vs Interpreted: 04/24/24 Transcribed: 04/28/24 Result Fish Howard MD BAG MAKING MACHINE OPERATOR Final Result * TYPE & SCREEN (04/24/2024 9:59 AM POUCH MAKER) ABO/RH O POSITIVE 04/24/2024 11:12 AM POUCH MAKER [facility] ANTIBODY SCREEN NEGATIVE 04/24/2024 11:12 AM POUCH MAKER [facility] SAMPLE EXPIRATION 04/27/2024,2 359 04/24/2024 11:12 AM POUCH MAKER [facility] 04/24/2024 9:59 AM POUCH MAKER us Nancy Howard MD BLOOD BANK TEST ORDERABLES Final Result Performing Organization Address City/[facility] Co de Phone Number [facility] [address] [place] [address], [place] [phone] * PROTIME/INR, VENOUS (04/24/2024 9:59 AM POUCH MAKER) PROTIME 10.7 10.2 - 12.9 SEC 04/24/2024 10:40 AM POUCH MAKER [facility] INR 0.9 04/24/2024 10:40 AM POUCH MAKER [facility] Comment: Recommended INR Therapeutic Goals: 2.0-3.0 Routine Therapy 2.5-3.5 Mechanical Prosthetic Valves (High Risk) 04/24/2024 9:59 AM POUCH MAKER us Nancy Howard MD LABORATORY Final Result Performing Organization Address City/[facility]/ZIP Co de Phone Number [facility] [address] [place] [address], [place] [phone] * (ABNORMAL) BASIC METABOLIC PANEL (04/24/2024 9:59 AM POUCH MAKER) [facility] GLUCOSE 110(H) 70 - 99 MG/DL 04/24/2024 10:50 AM [facility] BUN 15 7 - 18 MG/DL 04/24/2024 10:50 AM [facility] CREATININE S/P/B 1.15 0.7 - 1.3 MG/DL 04/24/2024 10:50 AM [facility] SODIUM S/P/B 136 136 - 145 MMOL/L 04/24/2024 10:50 AM [facility] POTASSIUM S/P/B 3.3(L) 3.5 - 5.1 MMOL/L 04/24/2024 10:50 AM [facility] CHLORIDE S/P/B 101 97 - 115 MMOL/L 04/24/2024 10:50 AM [facility] CO2 26.1 21 - 32 MMOL/L 04/24/2024 10:50 AM [facility] CALCIUM S/P/B 9.0 8.5 - 10.1 MG/DL 04/24/2024 10:50 AM [facility] ANION GAP 8.9 2 - 10 MMOL/L 04/24/2024 10:50 AM [facility] BUN CREATININE RATIO 13.0 6 - 26 04/24/2024 10:50 AM [facility] GFR ESTIMATE 72(L) >90 ML/MIN/1.7 3 M2 04/24/2024 10:50 AM [facility] Comment: NOTE: eGFR is not calculated for patients <18 years of age or gender unknown. This is an estimated GFR calculation using the new CKD EPI creatinine equation without race and so does not require a correction factor for race. This estimated GFR should not be used for calculating drug doses. 04/24/2024 9:59 AM POUCH MAKER Nancy Howard MD LABORATORY Final Result [facility] [address] [place] [address], [place] [phone] * (ABNORMAL) CBC W/DIFF AUTOMATED (04/24/2024 9:59 AM POUCH MAKER) [facility] WBC 8.90 4.5 - 11.0 x10'3/uL 04/24/2024 10:56 AM [facility] RBC 5.81 4.70 - 6.10 x10'6/uL 04/24/2024 10:56 AM [facility] HGB 16.6 14.0 - 18.0 G/DL 04/24/2024 10:56 AM [facility] HCT 48.3 43.0 - 54.0 % 04/24/2024 10:56 AM [facility] MCV 83.1 80.0 - 94.0 FL 04/24/2024 10:56 AM [facility] MCH 28.6 27.0 - 31.0 PG 04/24/2024 10:56 AM [facility] MCHC 34.4 32.0 - 36.0 G/DL 04/24/2024 10:56 AM [facility] RDW 13.0 11.5 - 14.5 % 04/24/2024 10:56 AM [facility] PLT 334 130 - 400 x10'3/uL 04/24/2024 10:56 AM [facility] MPV 9.8 9.3 - 12.2 FL 04/24/2024 10:56 AM [facility] DIFFERENTIAL TYPE MANUAL DIFFERENTIAL 04/24/2024 10:56 AM [facility] SEG NEUTROPHILS 62 % 10:56 AM [facility] LYMPHOCYTES 22 % 04/24/2024 10:56 AM [facility] MONOCYTES 10 % 04/24/2024 10:56 AM [facility] EOSINOPHILS 3 % 04/24/2024 10:56 AM [facility] BASOPHILS 3 % 04/24/2024 10:56 AM [facility] ABS. NEUTROPHILS 5.52 1.80 - 7.70 x10'3/uL 04/24/2024 10:56 AM [facility] ABS. LYMPHOCYTES 1.96 1.00 - 4.80 x10'3/uL 04/24/2024 10:56 AM [facility] ABS. MONOCYTES 0.89(H) 0.30 - 0.82 x10'3/uL 04/24/2024 10:56 AM [facility] ABS. EOSINOPHILS 0.27 0.04 - 0.54 x10'3/uL 04/24/2024 10:56 AM [facility] ABS. BASOPHILS 0.27(H) 0.01 - 0.08 x10'3/uL 04/24/2024 10:56 AM [facility] RBC MORPHOLOGY RBC MORPHOLOGY APPEARS NORMAL. SLIDE REVIEWED. 04/24/2024 10:56 AM [facility] PLT EST. ADEQUATE 04/24/2024 10:56 AM [facility] 04/24/2024 9:59 AM POUCH MAKER us Nancy Howard MD LABORATORY Final Result [facility] [address] [place] [address], [place] [phone] from Last 3 Months Insurance [employer] Advance Directives * Full Code (Latest Code Status on File) Date Activated Date Inactivated Comments 04/24/2024 1:00 PM 04/24/2024 5:23 PM Care Teams Electric Motor Control Assembler Relationship Specialty Start Date End Date Felton Ross MD [address] [place] [address] PCP - General 04/21/24 Zach Ayala DO [address] [place] [address] INTERNAL MEDICINE 01/17/24
[2024-06-18 09:49] LABS: Alanine Aminotransferase 25 U/L (16-63); Alkaline Phosphatase 97 U/L (46-116); Anion Gap 8 mmol/L (4-12); Aspartate Amino Transferase 16 U/L (15-37); Bilirubin,Total 0.9 mg/dL (0.00-1.00); Blood Urea Nitrogen 12 mg/dL (7-18); Calcium 9.1 mg/dL (8.5-10.1); Carbon Dioxide 30 mmol/L (21-32); Chloride 100 mmol/L (98-108); Cholesterol 132 mg/dL (0-200); Estimated Glomerular Filt Rate > 60; Glucose 103 mg/dL (70-99); HDL Direct 53 mg/dL (40-60); LDL Cholesterol Calculated 61 mg/dL (<130); Osmolality Calculated 285 mOsm/kg (285-295); Potassium 4.1 mmol/L (3.5-5.1); Prostate Specific Antigen 1.1 ng/mL (< OR = 4.0); Sodium 138 mmol/L (136-145); Total Protein 7.1 g/dL (6.4-8.2); Triglycerides 89 mg/dL (0-150)
== END 2024-06-18 08:47 | disposition home or self-care (01) ==
LOC: CHSLAB 08:50
PROVIDERS: PCP Family Medicine; Visit Provider Family Medicine
DX: I10 Essential (primary) hypertension (principal); Z12.5 Encounter for screening for malignant neoplasm of prostate; Z13.29 Encounter for screening for other suspected endocrine disorder
CPT/HCPCS: 36415; 80053; 80061; 81003; 82043; 84153; 84443; 85025; G0103

== ENCOUNTER 2024-12-22 11:42 | Outpatient (CLI) | payer OTHER, SELFPAY ==
--- NOTE | ~2024-12-22 | XR_ITS ---
EXAMINATION: XR ankle LT min 3V, 12/22/2024 11:49 CDT HISTORY: Hx bone spur, heel to medial malleolus pain COMPARISON: No comparisons available. Findings: No acute fracture or malalignment. No significant degenerative changes. Soft tissues unremarkable. Impression: No acute fracture or malalignment. Reviewed, dictated and finalized at location P. Impression: No acute fracture or malalignment.
--- OUTSIDE RECORDS SUMMARY | 2024-12-22 13:23 | XMS_ITS | Clinical Summary ---
Author Organization [facility] Address [address] [place] [address] Care Team Providers Care Fur Clipper Name Role Phone Zach Ayala Francisco Javier DO Unavailable Felton Ross MD Primary Care Provider [phone] Allergies No known active allergies Medications olmesartan (BENICAR) 40 MG tabletIndicatio ns:Essential hypertension Take 1 tablet (40 mg total) by mouth daily. 90 tablet 3 05/02/19 23 Active amLODIPine (NORVASC) 10 MG tabletIndicatio ns:Essential hypertension Take 1 tablet (10 mg total) by mouth daily. 90 tablet 3 05/02/19 23 Active meloxicam (MOBIC) 15 MG tabletIndicatio ns:Essential hypertension Take 1 tablet (15 mg total) by mouth daily as needed (for pain). 30 tablet 5 05/02/19 23 Active aspirin EC (ECOTRIN) 81 MG tablet Take 1 tablet (81 mg total) by mouth daily. Active metoprolol succinate ER (TOPROL-XL) 25 MG 24 hr tablet Take 0.5 tablets (12.5 mg total) by mouth daily. NEW DOSE 45 tablet 1 05/27/19 25 Active Additional Information Patient taking differently: 25 mgOral Every 24 hours, NEW DOSE, Reported on 12/01/2024 chlorthalidone (HYGROTEN) 25 MG tablet Take 1 tablet (25 mg total) by mouth daily. 09/30/19 25 Active hydroCHLOROthia zide (HYDRODIURIL) 25 MG tabletIndicatio ns:Essential hypertension Take 1 tablet (25 mg total) by mouth daily. 90 tablet 3 03 025 Discontinued Active Problems Problem Noted Date Diagnosed Date Morbid obesity with BMI of 45.0-49.9, adult 03/0 10/2022 Arthritis 05/23/2016 Essential hypertension 05/23/2016 Resolved Problems Problem Noted Date Diagnosed Date Resolved Date Screening for prostate cancer 05/25/2016 05/08/2022 Encounters Date Type Department Care Team Description 12/15/2024 Telephone [facility] [address], [address] [address] Jossue Almazan MD Information (Care Team Request) 12/01/2024 9:45 AM CDT Office Visit [facility] [place] [address], [address] [address] Bobby Howard MD Pollmann, Sydney M, APRN Follow Up (svt) 12/01/2024 Travel from Last 3 Months Family History [...] Date Smoking Tobacco: Never Smokeless Tobacco: Never Alcohol Use Standard Drinks/Week Comments Yes 66.7 [...] Sign Reading Time Taken Comments Blood Pressure 132/86 12/01/2024 9:41 AM CDT Pulse 76 12/01/2024 9:41 AM CDT Temperature 36.4 C (97.6 F) 04/24/2024 12:45 PM 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, [address] [id number] Francisca Mcdonald MD [address] [place], [place] [phone] Health Maintenance Due Date Last Done Comments Colorectal Cancer Screening Colonoscopy (10 Years) 1961 Annual Physical 1964 Hepatitis C 09/23/1979 DTaP, Tdap and Td Vaccines ( 1 - Tdap) 1980 Pneumococcal Vaccine: 50+ Ye ars (1 of 1 - PCV) 09/23/2011 Zoster Vaccines (1 of 2) 09/23/2011 RSV Immunization or 60+ Years (1 - Risk 60-74 years 1-dose series) 2021 PHQ-2 (Physician [place]) 02/27/2024 COVID-19 Vaccine (2 - 2024-2 6 season) 2024 07/03/2020 Influenza Adult (#1) 2024 Hepatitis A Vaccines Aged Out No long er eligible based on patient's age to complete this topic Meningococcal B Vaccine Aged Out No l onger eligible based on patient's age to complete this topic Meningococcal Vaccine Aged Out No quentin sylvia eligible based on patient's age to complete this topic RSV Immunizations Under 20 Months Aged Out No longer eligible based on patient's age to complete this topic Insurance [employer] [employer] Advance Directives * Full Code (Latest Code Status on File) Date Activated Date Inactivated Comments 04/24/2024 1:00 PM 04/24/2024 5:23 PM Care Teams Fur Clipper Relationship Specialty Start Date End Date Felton Ross MD [address] [place] [address] PCP - General 04/21/24 Zach Ayala DO [address] [place], [place] [id number] INTERNAL MEDICINE 01/17/24
== END 2024-12-22 11:43 | disposition home or self-care (01) ==
LOC: CHSIMG 11:44
PROVIDERS: PCP Family Medicine; Visit Provider Family Medicine
DX: M25.572 Pain in left ankle and joints of left foot (principal)
CPT/HCPCS: 73610